=== PATIENT | female | born 1955 | race African-American/Black ===

== ENCOUNTER 2020-02-06 14:44 | Emergency (ER) | payer MEDICAID ==
[~2020-02-06] VITALS: Ht 162.6 cm; Wt 70.3 kg
--- NOTE | 2020-02-06 14:45 | NUR ---
[facility]LIX 40 from [facility] with right sided weakness. hx of CVA. per paramedics, SNF told them that pt is weaker than pt's baseline and loss of appetite. pt alert and able to follow commands. no pain at this time. awaiting for md gage
[2020-02-06] MEDS ORDERED: IV NS 0.9% 1,000 ML BAG IV ONE (15:00)
[2020-02-06 15:40] LABS: BASOPHILS # (AUTO) 0.1 /CMM (0.0-0.2); BASOPHILS % (AUTO) 1.1 % (0.0-2.0); EOSINOPHILS % (AUTO) 2.8 % (0.0-6.0); HEMATOCRIT 40 % (33-45); HEMOGLOBIN 13.1 g/dL (11.5-14.8); LYMPHOCYTES # (AUTO) 2.5 /CMM (0.8-4.8); LYMPHOCYTES % (AUTO) 31.1 % (20.0-44.0); MEAN CORPUSCULAR HGB CONC 33 g/dl (31.0-36.0); MEAN CORPUSCULAR VOLUME 91 fL (82-100); MONOCYTES # (AUTO) 0.7 /CMM (0.1-1.30); MONOCYTES % (AUTO) 8.6 % (2.0-12.0); NEUTROPHILS # (AUTO) 4.6 /CMM (1.8-8.9); NEUTROPHILS % (AUTO) 56.4 % (43.0-81.0); PLATELET COUNT (AUTO) 198 /CMM (150-450); RED BLOOD CELL COUNT(AUTO) 4.44 MIL/uL (4.0-5.2); WHITE BLOOD COUNT (AUTO) 8.1 K/uL (4.3-11.0)
--- NOTE | 2020-02-06 15:42 | NUR ---
pt unable to collect urine at this time
--- NOTE | 2020-02-06 15:53 | NUR ---
received a call from the lab regarding covid 19 test "negative"
[2020-02-06] MEDS ORDERED: CRAN425C6 PO (16:04)
[2020-02-06] MEDS ORDERED: MAGN400O6 PO (16:04)
[2020-02-06] MEDS ORDERED: PANT40TA2 PO (16:04)
[2020-02-06] MEDS ORDERED: ISOS10TA8 PO (16:04)
[2020-02-06] MEDS ORDERED: ACET-2605 PO (16:04)
[2020-02-06] MEDS ORDERED: HYDR-4076 PO (16:04)
[2020-02-06] MEDS ORDERED: CRAN3875 PO (16:04)
[2020-02-06] MEDS ORDERED: ASPI-1420 PO (16:04)
[2020-02-06] MEDS ORDERED: CARV3.122 PO (16:04)
[2020-02-06] MEDS ORDERED: OMEG-88 PO (16:04)
[2020-02-06] MEDS ORDERED: MULT-447 PO (16:04)
[2020-02-06] MEDS ORDERED: ATOR40TA PO (16:04)
[2020-02-06] MEDS ORDERED: BISA10SU11 RC (16:04)
[2020-02-06] MEDS ORDERED: ACET-868 PO (16:04)
[2020-02-06] MEDS ORDERED: CLOP75TA15 PO (16:04)
[2020-02-06] MEDS ORDERED: TYL2T PO (16:04)
[2020-02-06] MEDS ORDERED: NA P133E RC (16:04)
[2020-02-06] MEDS ORDERED: DOCU-141 PO (16:04)
[2020-02-06 16:07] LABS: CALCIUM, SERUM 9.5 mg/dL (8.5-10.1); CARBON DIOXIDE 26 mmol/L (21-32); CHLORIDE 106 mmol/L (98-107); CREATININE 1.2 mg/dL (0.6-1.3); GLUCOSE 82 mg/dL (74-106); POTASSIUM 3.9 mmol/L (3.5-5.1); SODIUM SERUM 137 mmol/L (136-145); UREA NITROGEN, BLOOD 18 mg/dL (7-18)
[2020-02-06 16:13] LABS: ALANINE AMINOTRANSFERASE 23 U/L (12-78); ALBUMIN 3.2 g/dL (3.4-5.0); ALKALINE PHOSPHATASE 100 U/L (46-116); ASPARTATE AMINOTRANSFERASE 18 U/L (15-37); BILIRUBIN,DIRECT 0.1 mg/dL (0.0-0.2); BILIRUBIN,TOTAL 0.6 mg/dL (0.2-1.0); TOTAL PROTEIN, SERUM 7.9 g/dL (6.4-8.2)
--- NOTE | 2020-02-06 16:18 | NUR ---
urine collected and sent to lab
[2020-02-06 16:20] LABS: BILIRUBIN,URINE SMALL (NEGATIVE); BLOOD, URINE Negative Ery/uL (NEGATIVE); COLOR,URINE Yellow (YELLOW); LEUKOCYTE ESTERASE ,URINE Small (NEGATIVE); NITRITE, URINE Negative (NEGATIVE); PROTEIN,URINE 100 mg/dl (NEGATIVE); UGLUCOSE Negative (NEGATIVE); UROBILINOGEN,URINE 0.2 EU/dL (0.2)
[2020-02-06 16:20] LABS: LIPASE 57 U/L (73-393)
--- NOTE | 2020-02-06 16:35 | NUR ---
CALLED PT'S FACILITY AND HAD THE ER MD SPEAK TO THE THE CHARGE NURSE
[2020-02-06 16:45] LABS: RBC,URINE NONE SEEN /HPF (0-2)
[2020-02-06 16:46] LABS: BACTERIA,URINE 1+ /HPF (None Seen); SQUAMOUS EPITHELIAL CELL,UR Few /HPF (None Seen)
--- NOTE | 2020-02-06 17:04 | NUR ---
CALLED [facility] TO HAVE IMAGE READ
--- NOTE | 2020-02-06 17:08 | NUR ---
GOING BACK TO [facility]. COLTON LUIS AT 1930. TRIP#[id number].
--- NOTE | 2020-02-06 17:18 | NUR ---
REPORT GIVEN TO NATI-CHARGE NURSE FROM [facility].
--- NOTE | 2020-02-06 17:55 | NUR ---
DAUGHTER, HAYDEN CALLED FOR AN UPDATE. [phone]
--- NOTE | 2020-02-06 18:00 | NUR ---
SPOKE TO HAYDEN (DAUGHTER) GAVE AN UPDATE REGARDING PT. VERBALIZES UNDERSTANDING
--- NOTE | 2020-02-06 19:52 | NUR ---
REPORT GIVEN TO TRANSPORT TEAM FOR MITCH. AND TRANSFERRING RESPONSIBILTIES.
[2020-02-06 20:34] VITALS: BP 127/78
== END 2020-02-06 20:00 ==
LOC: ER 14:49
DX: S42.341A Displaced spiral fracture of shaft of humerus, right arm, initial encounter for closed fracture (principal); X58.XXXA Exposure to other specified factors, initial encounter; Y92.129 Unspecified place in nursing home as the place of occurrence of the external cause; R53.1 Weakness; Z20.828 Contact with and (suspected) exposure to other viral communicable diseases; R94.31 Abnormal electrocardiogram [ECG] [EKG]; I69.351 Hemiplegia and hemiparesis following cerebral infarction affecting right dominant side; J44.9 Chronic obstructive pulmonary disease, unspecified; I10 Essential (primary) hypertension; Z95.1 Presence of aortocoronary bypass graft; I25.10 Atherosclerotic heart disease of native coronary artery without angina pectoris; E78.5 Hyperlipidemia, unspecified; Z79.02 Long term (current) use of antithrombotics/antiplatelets; Z79.82 Long term (current) use of aspirin; Z79.899 Other long term (current) drug therapy
CPT/HCPCS: 36415; 71045; 73060; 80048; 80076; 81001; 83690; 84484; 85025; 87086; 87426; 93005; 96360; 99285; C9803; J7030; 81000-TC